=== PATIENT | female | born 2005 | race Caucasian/White ===

== ENCOUNTER 2025-03-11 14:59 | Outpatient (CLI) | payer OTHER, SELFPAY ==
--- NOTE | 2025-03-11 15:00 | CRLHL7_ITS ---
For Patients: As a result of the Cures Act, medical imaging exams and procedure reports are released immediately into your electronic medical record. You may view this report before your referring provider. If you have questions, please contact your health care provider. OB ULTRASOUND INDICATION: Positive test. TECHNIQUE: Real time grayscale imaging of the fetus was performed. Transvaginal. LMP: 01/26/2025. SMOOTH by LMP: 11/02/2025. GA: 6 w, 2 d. Previous US: No. CRL: 0.4 cm. 6 w 1 d. SMOOTH: 11/03/2025. FHR: 105 BPM. Gestational sac: 1.7 cm. Appears within normal limits. Yolk sac: 1.2 mm. Appears small, ? abnormal. Right ovary: 3.4 X 2.3 x 1.9 cm. CL. Left ovary: 2.3 x 1.1 x 1.5 cm. IMPRESSION: 1. Single living intrauterine measuring 6 weeks 1 day and sonographic due date 11/03/2025. 2. heart rate lower limits of normal at 105 beats per minute. Short-term follow-up in 1-2 weeks recommended. Jaswant Mancuso M.D. Diagnostic Radiologist [email or web address]/Dictated by: Jaswant Mancuso MD @ 03/11/2025 3:55:00 PM (Electronically Signed)
== END 2025-03-11 15:00 | disposition home or self-care (01) ==
PROVIDERS: Visit Provider Registered Nurse
DX: Z34.91 Encounter for supervision of normal pregnancy, unspecified, first trimester (principal); Z3A.01 Less than 8 weeks gestation of pregnancy
CPT/HCPCS: 76817